=== PATIENT | female | born 1985 | race Caucasian/White ===

== ENCOUNTER → 2016-11-16 | Outpatient (REF) | payer OTHER | LOC: M LAB REF 09:49 | PROVIDERS: ATTEND Physician Assistant | DX: J02.9 Acute pharyngitis, unspecified (principal) ==

== ENCOUNTER → 2017-02-17 | Outpatient (REF) | payer OTHER | LOC: M SFHCWAGY 13:35 | PROVIDERS: ATTEND Nurse Practitioner Women's Health | DX: Z12.4 Encounter for screening for malignant neoplasm of cervix (principal) ==

== ENCOUNTER → 2017-04-29 | Outpatient (CLI) | payer OTHER ==
[2017-04-29 10:31] LABS: BASO % 0.6 % (0.0-1.0); EOS # 0.2 K/mm3 (0.0-0.50); EOS % 3.7 % (0.0-3.0); LARGE UNSTAINED CELL # 0.1 K/mm3 (0.0-0.4); LARGE UNSTAINED CELL % 1.8 % (0.0-4.0); LYMPH # 1.6 K/mm3 (1.5-4.5); LYMPH % 23.4 % (24.0-44.0); MEAN CORPUSCULAR HEMOGLOBIN 32.9 pg (27.0-33.0); MEAN CORPUSCULAR HGB CONC 35.5 g/dl (32.0-36.5); MEAN CORPUSCULAR VOLUME 92.7 fl (80.0-96.0); MONO # 0.4 K/mm3 (0.0-0.8); MONO % 5.9 % (0.0-5.0); NEUTROPHILS # 4.2 K/mm3 (1.8-7.7); NEUTROPHILS % 64.5 % (36.0-66.0); PLATELET COUNT, AUTOMATED 262 k/mm3 (150-450); RED CELL DISTRIBUTION WIDTH 12.6 % (11.5-14.5); WHITE BLOOD COUNT 6.4 K/mm3 (4.0-10.0)
[2017-04-30 10:03] LABS: HBsAg Prenatal NEGATIVE (NEGATIVE)
== END ==
LOC: M LAB 09:46
PROVIDERS: ATTEND Advanced Practice Midwife
DX: Z36 Encounter for antenatal screening of mother (principal); Z3A.00 Weeks of gestation of pregnancy not specified

== ENCOUNTER → 2017-07-13 | Outpatient (CLI) | payer OTHER ==
[2017-07-13 13:29] LABS: BASO % 0.2 % (0.0-1.0); EOS # 0.2 K/mm3 (0.0-0.50); EOS % 2.2 % (0.0-3.0); LARGE UNSTAINED CELL # 0.1 K/mm3 (0.0-0.4); LARGE UNSTAINED CELL % 1.3 % (0.0-4.0); LYMPH # 1.2 K/mm3 (1.5-4.5); LYMPH % 15.2 % (24.0-44.0); MEAN CORPUSCULAR HEMOGLOBIN 33.9 pg (27.0-33.0); MEAN CORPUSCULAR HGB CONC 36.4 g/dl (32.0-36.5); MEAN CORPUSCULAR VOLUME 93.4 fl (80.0-96.0); MONO # 0.4 K/mm3 (0.0-0.8); MONO % 5.3 % (0.0-5.0); NEUTROPHILS # 5.6 K/mm3 (1.8-7.7); NEUTROPHILS % 75.8 % (36.0-66.0); PLATELET COUNT, AUTOMATED 228 k/mm3 (150-450); RED CELL DISTRIBUTION WIDTH 13.9 % (11.5-14.5); WHITE BLOOD COUNT 7.4 K/mm3 (4.0-10.0)
[2017-07-13 13:30] LABS: ALT/SGPT 28 U/L (12-78); AST/SGOT 16 U/L (15-37); BILIRUBIN,TOTAL 0.3 MG/DL (0.2-1.0); CREATININE FOR GFR 0.62 MG/DL (0.55-1.02); GLOMERULAR FILTRATION RATE > 60.0 (>60); URIC ACID 4.3 MG/DL (2.6-6.0)
== END ==
LOC: M SMT 11:24
PROVIDERS: ATTEND Advanced Practice Midwife
DX: O13.5 Gestational [pregnancy-induced] hypertension without significant proteinuria, complicating the puerperium (principal); Z3A.00 Weeks of gestation of pregnancy not specified

== ENCOUNTER → 2017-08-02 | Outpatient (CLI) | payer OTHER ==
--- NOTE | 2017-08-02 16:26 | REP ---
Obstetric ultrasound for anatomy: There is a single intrauterine gestation in a vertex presentation. There is motion and cardiac activity, the heart rate is 147 beats per minute. The placenta is posterior. There is no placenta previa or abruptio. Placenta is grade zero. The amniotic fluid volume subjectively is normal. The cervix measures 4.9 cm. The maternal adnexa and cul-de-sac are unremarkable. By the ultrasound today gestational age is 18 weeks 4 days with an JEREMY of 12/30/2017. Gestational age by LMP is 20 weeks 0 days. weight is 250 grams (0 pounds, 8 ounces). This is the 51st percentile for 18 weeks 4 days and the 4th percentile for 20 weeks 0 days. The following anatomic structures are identified and are unremarkable: Intracranial lateral ventricles, choroid plexus, cerebellum, cisterna magna, facial profile, lungs, diaphragm, stomach, cord insertion, three-vessel cord, kidneys, bladder, spine and upper lower extremities. Suboptimally demonstrated are the face, upper lip, four-chamber view of the heart and the cardiac right and left ventricular outflow tracts. A followup study dedicated to these structures might be considered. Otherwise, there are no anomalies Signed by Jay Ware MD 08/02/2017 04:18 P
== END ==
LOC: M SMT 14:28
PROVIDERS: ATTEND Specialist
DX: Z36 Encounter for antenatal screening of mother (principal); Z3A.18 18 weeks gestation of pregnancy

== ENCOUNTER → 2017-08-18 | Outpatient (CLI) | payer OTHER ==
--- NOTE | 2017-08-18 09:28 | REP ---
Obstetric sonography: History: Supervision of , followup anatomy. Comparison study August 02, 2017. Findings: Scanning through the gravid uterus demonstrates a viable single intrauterine gestation in a variable lie. motion is observed and heart rate is recorded at 150 beats per minute. A posterior placenta is seen grade 0 without evidence of previa. Amniotic fluid is subjectively normal. The closed cervical length is 4.4 cm, viewed transabdominally. There has been appropriate interval growth. No anomaly is seen. The following anatomic structures are identified today and felt to be unremarkable: cranium, choroid plexus, cavum, cerebellum and posterior fossa, face and profile, lungs, four-chamber heart with left and right ventricular outflow tract views, diaphragm, left-sided stomach, abdominal wall cord insertion, three-vessel umbilical cord, kidneys and bladder, spine, upper and lower extremities. Biometry chart: BPD 4.8 cm 20 weeks 3 days Head circumference 18.0 cm 20 weeks 3 days Abdominal circumference 15.2 cm 20 weeks 3 days Femur length 3.3 cm 20 weeks 3 days Humeral length 3.3 cm 21 weeks 0 days Cerebellar diameter 2.2 cm 20 weeks 2 days HC/AC ratio normal 1.19. Cephalic index normal 0.73. Estimated weight 354 grams, 0 pounds 12 ounces, 35th percentile for 20 weeks 6 days. Impression: Viable single intrauterine gestation at 20 weeks 1 day by today's composite sonographic criteria. Expected gestational age estimate based on prior sonography is 20 weeks 6 days. JEREMY by prior sonography December 30, 2017. No anomaly is seen. Signed by David Ward MD 08/18/2017 09:34 A
== END ==
LOC: M SMT 07:55
PROVIDERS: ATTEND Advanced Practice Midwife
DX: O13.5 Gestational [pregnancy-induced] hypertension without significant proteinuria, complicating the puerperium (principal)

== ENCOUNTER → 2017-10-06 | Outpatient (CLI) | payer OTHER | LOC: M LAB 07:08 | PROVIDERS: ATTEND Obstetrics & Gynecology | DX: Z34.82 Encounter for supervision of other normal pregnancy, second trimester (principal) ==

== ENCOUNTER → 2017-10-06 | Outpatient (CLI) | payer OTHER ==
--- NOTE | 2017-10-06 14:06 | REP ---
Clinical: well-being . Comparison: 08/18/2017 . Findings: Examination demonstrates a single live intrauterine in cephalic presentation. motion is identified by technologist. Placenta is noted posteriorly and grade I, without evidence for placenta previa or abruption. Amniotic fluid volume is normal. Cervix measures 4.7 cm in length and appears closed. No evidence for nuchal cord. Gestational age by LMP 29 weeks 2 days with JEREMY 12/20/2017 . Gestational age by current measurements 28 weeks 1 day with JEREMY 12/28/2017 . FHR equals 141 beats per minute. Estimated weight 1175 grams ( 49th percentile). Amniotic fluid index 15.3 cm (9.5 - 22.8). Umbilical cord SD ratio (mid cord) = 2.36 (2.60 - 4.00). Anatomical assessment demonstrates normal structures including cranium, choroid plexus, cavum, cerebellum/posterior fossa, facial features, lungs, four-chamber heart/ventricular outflow tracts, diaphragm, stomach, cord insertion/three-vessel cord, kidneys/bladder, spine, and extremities. Impression: Single live intrauterine in cephalic presentation demonstrating appropriate interval growth. No gross abnormalities are identified. Umbilical cord SD ratio minimally below normal range. Signed by Farhad Sorensen MD 10/06/2017 01:57 P
== END ==
LOC: M RAD 12:24
PROVIDERS: ATTEND Obstetrics & Gynecology
DX: O10.012 Pre-existing essential hypertension complicating pregnancy, second trimester (principal)

== ENCOUNTER → 2017-10-26 | Outpatient (CLI) | payer OTHER ==
--- NOTE | 2017-10-26 16:42 | REP ---
OB ULTRASOUND: Real-time sonographic evaluation of the gravid uterus is performed. There is a single living intrauterine gestation. Estimated gestational age is 30 weeks 5 days based on the first ultrasound, EDC 12/30/2017. Today's measurements indicate appropriate growth. BPD 78 mm = 31 weeks 1 day, 58th percentile HC 286 mm = 31 weeks 3 days, 61st percentile AC 276 mm = 31 weeks 5 days, 66th percentile FL 58 mm = 30 weeks 4 days, 48th percentile HC/AC ratio 1.03, within normal range. Estimated weight 1731 grams, 55th percentile. heart rate 150 beats per minute. Amniotic fluid within normal limits, AKIL 17.1, within normal range of 8.0 to 23.7. Biophysical profile score is 8 out of 8. S/D ratio 3.07, within normal range. RI 0.67, within normal range. Lateral ventricles, posterior fossa, upper lip, stomach, cord insertion, three-vessel cord, kidneys, bladder and spine are visualized and are grossly unremarkable. position vertex. Placenta is fundal and grade 1 with no previa or abruption. Cervix is closed and measures 3.5 cm in diameter. Signed by Jay Valenzuela MD 10/27/2017 09:06 A
== END ==
LOC: M RAD 15:25
PROVIDERS: ATTEND Advanced Practice Midwife
DX: Z36.89 Encounter for other specified antenatal screening (principal); Z3A.31 31 weeks gestation of pregnancy

== ENCOUNTER → 2017-11-02 | Outpatient (CLI) | payer OTHER ==
--- NOTE | 2017-11-03 14:36 | REP ---
Clinical: well-being. Biophysical profile. Comparison: 10/26/2017. Technique: Transabdominal obstetrical ultrasound with color Doppler evaluation. Findings: Single live advanced gestation in cephalic presentation. motion was identified by technologist. Placenta is noted fundally and grade II without evidence for placenta previa or abruption. Amniotic fluid volume is normal. Cervix measures 3.2 cm length and appears closed. No evidence for nuchal cord. Gestational age by LMP 33 weeks 1 day with JEREMY at 12/20/2017. heart rate: 144 beats per minute. Amniotic fluid index: 18.7 cm (8.3 - 24.5). Biophysical profile: 8/8. Umbilical cord SD ratio: 2.26 (2.00 - 3.00). Impression: Single live advanced gestation in cephalic presentation. Biophysical profile score equals 8/8. No gross abnormalities are identified. Signed by Farhad Sorensen MD 11/03/2017 02:59 A
== END ==
LOC: M RAD 15:43
PROVIDERS: ATTEND Advanced Practice Midwife
DX: O10.012 Pre-existing essential hypertension complicating pregnancy, second trimester (principal); Z3A.33 33 weeks gestation of pregnancy

== ENCOUNTER → 2017-11-10 | Outpatient (CLI) | payer OTHER ==
--- NOTE | 2017-11-10 13:06 | REP ---
Clinical: Hypertension for biophysical profile. Comparison: 11/02/2017. Findings: Single live advanced gestation in cephalic presentation. motion was identified by technologist. Placenta is noted posterolaterally towards the right side and grade II without placenta previa or abruption. Amniotic fluid volume is within normal limits. Nuchal cord cannot be excluded. Gestational age by first ultrasound 32 week 6 days. heart rate: 147 beats per minute. Amniotic fluid index: 20.1 cm (8.4 - 24.4). Biophysical profile: 8/8. Umbilical cord SD ratio: 2.50 (2.00 - 3.00). Impression: Single live advanced gestation in cephalic presentation. Biophysical profile score equals 8/8. Signed by Farhad Sorensen MD 11/10/2017 12:56 P
== END ==
LOC: M RAD 12:22
PROVIDERS: ATTEND Advanced Practice Midwife
DX: O10.012 Pre-existing essential hypertension complicating pregnancy, second trimester (principal); Z3A.32 32 weeks gestation of pregnancy

== ENCOUNTER → 2017-11-17 | Outpatient (CLI) | payer OTHER | LOC: M RAD 11:09 | DX: O10.012 Pre-existing essential hypertension complicating pregnancy, second trimester (principal); Z3A.35 35 weeks gestation of pregnancy | CPT/HCPCS: 76819 ==

== ENCOUNTER → 2017-11-24 | Outpatient (CLI) | payer OTHER | LOC: M RAD 11:01 | DX: O10.013 Pre-existing essential hypertension complicating pregnancy, third trimester (principal); Z3A.34 34 weeks gestation of pregnancy | CPT/HCPCS: 76815 ==

== ENCOUNTER 2017-11-26 11:41 | Outpatient (CLI) | payer OTHER | END 2017-11-26 13:00 | disposition home or self-care (01) | LOC: M LDO 11:41 | DX: O47.03 False labor before 37 completed weeks of gestation, third trimester (principal); Z3A.36 36 weeks gestation of pregnancy; Z88.1 Allergy status to other antibiotic agents; Z88.8 Allergy status to other drugs, medicaments and biological substances; Z88.0 Allergy status to penicillin | CPT/HCPCS: 59025 ==

== ENCOUNTER → 2017-11-26 | Outpatient (REF) | payer OTHER | LOC: M LAB REF 12:49 | DX: O10.013 Pre-existing essential hypertension complicating pregnancy, third trimester (principal) ==

== ENCOUNTER → 2017-12-01 | Outpatient (CLI) | payer OTHER | LOC: M RAD 14:18 | DX: O10.012 Pre-existing essential hypertension complicating pregnancy, second trimester (principal); Z3A.35 35 weeks gestation of pregnancy | CPT/HCPCS: 76815 ==

== ENCOUNTER 2017-12-05 10:06 | Inpatient (IN) | payer OTHER ==
[2017-12-05] MEDS: LACTATED RINGER'S 1000 ML IV (11:23)
[2017-12-05] MEDS: VANCOMYCIN HCL 1,000 MG, VIAL MATE ADAPTER 1 EACH in D5W 250 ML IV (12:36)
[2017-12-05 12:49] LABS: HEMOGLOBIN 11.1 g/dl (12.0-16.0); MEAN CORPUSCULAR HEMOGLOBIN 30.1 pg (27.0-33.0); MEAN CORPUSCULAR HGB CONC 33.6 g/dl (32.0-36.5); MEAN CORPUSCULAR VOLUME 89.4 fl (80.0-96.0); PLATELET COUNT, AUTOMATED 214 10^3/uL (150-450); RED BLOOD COUNT 3.69 10^6/uL (4.00-5.40); RED CELL DISTRIBUTION WIDTH 13.2 % (11.5-14.5); WHITE BLOOD COUNT 6.6 10^3/uL (4.0-10.0)
[2017-12-05 13:16] LABS: CREATININE,RANDOM URINE 80.8 MG/DL
[2017-12-05 13:26] LABS: ALT/SGPT 25 U/L (12-78); AST/SGOT 14 U/L (7-37); BILIRUBIN,TOTAL 0.3 MG/DL (0.2-1.0); CREATININE FOR GFR 0.58 MG/DL (0.55-1.02); GLOMERULAR FILTRATION RATE > 60.0 (>60); LDH LACTATE DEHYDROGENASE 166 U/L (84-246); URIC ACID 4.6 MG/DL (2.6-6.0)
[2017-12-05] MEDS: LR 1,000 ML IV ×2 (13:49→21:13)
[2017-12-05] MEDS: OXYTOCIN DRIP 30 UNITS in APPROPRIATE DILUENT 1 EA IV (14:03)
[2017-12-05] MEDS: PROMETHAZINE INJ 25 MG/ML VIAL (J2550) IV (23:30)
[2017-12-05] MEDS: BUTORPHANOL 2 MG/ML INJ (J0595) IV (23:32)
[2017-12-06] MEDS ORDERED: FENTANYL 2MCG/ML ROPIVACAINE 0.2% IN 0.9% NACL 200ML IVBAG As Ordered (00:31)
[2017-12-06] MEDS: VANCOMYCIN HCL 1,000 MG, VIAL MATE ADAPTER 1 EACH in D5W 250 ML IV (01:24)
[2017-12-06] MEDS: OXYTOCIN DRIP 30 UNITS in APPROPRIATE DILUENT 1 EA IV (01:56)
[2017-12-06] MEDS: LR 1,000 ML IV ×3 (01:56→17:56)
[2017-12-06] MEDS ORDERED: PROMETHAZINE 25 MG TAB PO (02:00)
[2017-12-06] MEDS ORDERED: MEASLES,MUMPS,RUBELLA VACCINE INJ (MMR-II) (90707) SC (02:00)
[2017-12-06] MEDS ORDERED: METHYLERGONOVINE MALEATE 0.2 MG TAB PO (02:00)
[2017-12-06] MEDS ORDERED: DOCUSATE SODIUM 100 MG CAP PO (02:00)
[2017-12-06] MEDS ORDERED: RHOGAM 300 MCG (1500 IU) INJ (J2790) IM (02:00)
[2017-12-06] MEDS ORDERED: ONDANSETRON 4MG/2ML VIAL (J2405) IV (02:00)
[2017-12-06] MEDS: DIBUCAINE 1% OINTMENT 30GM TOP (04:32)
[2017-12-06] MEDS: IBUPROFEN 800 MG TAB PO ×3 (09:36→20:20)
[2017-12-06] MEDS: PRENATAL VITAMINS CHEWABLE TABLET PO (09:36)
[2017-12-06] MEDS: LABETALOL 100 MG TAB PO ×2 (10:21→20:20)
[2017-12-06] MEDS: ACETAMINOPHEN 500 MG TAB PO (15:56)
[2017-12-07] MEDS: PRENATAL VITAMINS CHEWABLE TABLET PO (08:42)
[2017-12-07] MEDS: LABETALOL 100 MG TAB PO (08:42)
== END 2017-12-07 12:30 | disposition home or self-care (01) | DRG 560 ==
LOC: M LDO 10:06 → M OBS 12-06 03:43 → M LDI 11:08
PROC: 10E0XZZ Delivery of Products of Conception, External Approach (ICD-10-PCS; principal; 2017-12-06)
PROC: 0HQ9XZZ Repair Perineum Skin, External Approach (ICD-10-PCS; 2017-12-06)
DX: O70.0 First degree perineal laceration during delivery (principal); O16.4 Unspecified maternal hypertension, complicating childbirth; Z37.0 Single live birth; Z3A.38 38 weeks gestation of pregnancy; O99.820 Streptococcus B carrier state complicating pregnancy

== ENCOUNTER → 2018-09-30 | Outpatient (CLI) | payer OTHER | LOC: M EKG 10:36 | DX: R00.9 Unspecified abnormalities of heart beat (principal) | CPT/HCPCS: 93226 ==